=== PATIENT | male | born 1980 | race Caucasian/White ===

== ENCOUNTER 2021-12-14 14:20 | Day surgery (SDC) | payer BC, OTHER ==
[2021-12-14] MEDS ORDERED: SODIUM CHLORIDE 1,000 ML IV STA ×2 (16:19→16:38)
[2021-12-14] MEDS ORDERED: PROMETHAZINE HCL 25 MG/1 ML VIAL IVPUSH PRN (16:21)
[2021-12-14] MEDS ORDERED: oxyCODONE HCL 5 MG TABLET PO PRN (16:21)
[2021-12-14] MEDS ORDERED: ONDANSETRON 4 MG/2 ML VIAL IVPUSH PRN (16:21)
[2021-12-14] MEDS ORDERED: LACTATED RINGERS SOLUTION 1,000 ML IV SCH (16:30)
[2021-12-14] MEDS ORDERED: CEFTRIAXONE 1,000 MG in DEXTROSE 5%-WATER - 50 ML IVPB ONE (16:39)
[2021-12-14] MEDS ORDERED: CEFTRIAXONE 1 GM/50 ML BAG ONE (17:09)
[2021-12-14] MEDS ORDERED: PROPOFOL 20 ML ONE ×2 (17:59→19:00)
[2021-12-14] MEDS ORDERED: DEXAMETHASONE SOD PHOSPHATE 4 MG/1 ML VIAL ONE (17:59)
[2021-12-14] MEDS ORDERED: MIDAZOLAM HCL 2 MG/2 ML SINGLE DOSE VIAL ONE (17:59)
[2021-12-14] MEDS ORDERED: LIDOCAINE HCL 2% 100 MG/5 ML DISP.SYRIN ONE (17:59)
[2021-12-14] MEDS ORDERED: GLYCOPYRROLATE 0.2 MG/1 ML VIAL ONE (17:59)
[2021-12-14] MEDS ORDERED: KETOROLAC TROMETHAMINE 30 MG/1 ML VIAL ONE (18:01)
[2021-12-14] MEDS ORDERED: IOHEXOL 300 MG/ML INFUS..BTL IV ONE (19:00)
[2021-12-14 20:45] VITALS: BP 128/79; PULSE 98; RESP 18; TEMP 98.3; BMI 27.1
== END 2021-12-14 22:18 | disposition home or self-care (01) ==
LOC: JER 14:20 → JASUSAT 19:18 → J6S 20:23 → JASUSAT 22:13
PROVIDERS: ATTEND Urology
PROC: 0T9780Z Drainage of Left Ureter with Drainage Device, Via Natural or Artificial Opening Endoscopic (ICD-10-PCS; principal; 2021-12-14 17:30)
PROC: 0T778DZ Dilation of Left Ureter with Intraluminal Device, Via Natural or Artificial Opening Endoscopic (ICD-10-PCS; 2021-12-14 17:30)
DX: N13.2 Hydronephrosis with renal and ureteral calculous obstruction (principal)
CPT/HCPCS: 76000-TC-FY; 94760; 99285-25; C2617

== ENCOUNTER 2021-12-25 05:17 | Day surgery (SDC) | payer BC, OTHER ==
[2021-12-20 16:28] VITALS: BMI 29.7
[2021-12-25 07:22] VITALS: RESP 18
[2021-12-25] MEDS ORDERED: MIDAZOLAM HCL 2 MG/2 ML SINGLE DOSE VIAL ONE (08:38)
[2021-12-25] MEDS ORDERED: PROPOFOL 20 ML ONE (08:51)
[2021-12-25] MEDS ORDERED: KETOROLAC TROMETHAMINE 30 MG/1 ML VIAL ONE (08:51)
[2021-12-25 10:31] VITALS: BP 128/79; PULSE 80; TEMP 97.3
== END 2021-12-25 10:40 | disposition home or self-care (01) ==
LOC: JASU-SURG 05:17
PROVIDERS: ATTEND Urology
PROC: 0TF4XZZ Fragmentation in Left Kidney Pelvis, External Approach (ICD-10-PCS; principal; 2021-12-25 08:30)
DX: N20.0 Calculus of kidney (principal)

== ENCOUNTER 2022-01-22 03:59 | Day surgery (SDC) | payer BC, OTHER ==
[2022-01-19 12:24] VITALS: BMI 29.7
[2022-01-22] MEDS ORDERED: LACTATED RINGERS SOLUTION 1,000 ML IV SCH (07:15)
[2022-01-22 07:21] VITALS: RESP 18
[2022-01-22] MEDS ORDERED: PROPOFOL 20 ML ONE (09:02)
[2022-01-22] MEDS ORDERED: MIDAZOLAM HCL 2 MG/2 ML SINGLE DOSE VIAL ONE (09:02)
[2022-01-22] MEDS ORDERED: ONDANSETRON 4 MG/2 ML VIAL ONE (09:03)
[2022-01-22 10:30] VITALS: TEMP 97.8
[2022-01-22 11:02] VITALS: BP 130/90; PULSE 73
== END 2022-01-22 11:05 | disposition home or self-care (01) ==
LOC: JASU-SURG 03:59
PROVIDERS: ATTEND Urology
PROC: 0TF4XZZ Fragmentation in Left Kidney Pelvis, External Approach (ICD-10-PCS; principal; 2022-01-22 09:00)
DX: N20.0 Calculus of kidney (principal)

== ENCOUNTER 2022-03-05 04:47 | Day surgery (SDC) | payer BC, OTHER ==
[2022-02-27 17:20] VITALS: BMI 29.7
[2022-03-05 11:39] VITALS: RESP 18
[2022-03-05] MEDS ORDERED: FENTANYL CITRATE/PF 50 MCG/ML VIAL ONE ×6 (14:25→16:42)
[2022-03-05] MEDS ORDERED: MIDAZOLAM HCL 2 MG/2 ML SINGLE DOSE VIAL ONE (14:26)
[2022-03-05] MEDS ORDERED: PROPOFOL 20 ML ONE (14:26)
[2022-03-05] MEDS ORDERED: ceFAZolin SODIUM 1 GM VIAL IVPB ONE (14:55)
[2022-03-05] MEDS ORDERED: GENTAMICIN 80MG PREMIX BAG IVPB ONE (15:05)
[2022-03-05] MEDS ORDERED: GENTAMICIN SO4 80 MG/2 ML VIAL IVPB ONE (15:05)
[2022-03-05] MEDS ORDERED: PROMETHAZINE HCL 25 MG/1 ML VIAL IVPUSH PRN (16:37)
[2022-03-05] MEDS ORDERED: ONDANSETRON 4 MG/2 ML VIAL IVPUSH PRN (16:37)
[2022-03-05] MEDS ORDERED: oxyCODONE HCL 5 MG TABLET PO PRN ×2 (16:37)
[2022-03-05] MEDS ORDERED: LACTATED RINGERS SOLUTION 1,000 ML IV SCH (16:45)
[2022-03-05 17:18] VITALS: PULSE 80
[2022-03-05] MEDS ORDERED: ACETAMINOPHEN 325 MG TABLET (FP) ONE (17:56)
[2022-03-05 18:26] VITALS: TEMP 98.2
[2022-03-05 18:34] VITALS: BP 140/90
== END 2022-03-05 18:37 | disposition home or self-care (01) ==
LOC: JASU-SURG 04:47
PROVIDERS: ATTEND Urology
PROC: 0TC48ZZ Extirpation of Matter from Left Kidney Pelvis, Via Natural or Artificial Opening Endoscopic (ICD-10-PCS; principal; 2022-03-05 13:00)
PROC: 0T778DZ Dilation of Left Ureter with Intraluminal Device, Via Natural or Artificial Opening Endoscopic (ICD-10-PCS; 2022-03-05 13:00)
PROC: BT1FYZZ Fluoroscopy of Left Kidney, Ureter and Bladder using Other Contrast (ICD-10-PCS; 2022-03-05 13:00)
DX: N20.0 Calculus of kidney (principal)
CPT/HCPCS: 76000-TC-FY; 94760; C1758; C2617

== ENCOUNTER 2022-03-09 22:07 | Inpatient (IN) | payer BC, OTHER ==
[2022-03-09 22:20] VITALS: BMI 30.5
[2022-03-09] MEDS ORDERED: ACETAMINOPHEN 1000 MG/100 ML BAG IVPB ONE (23:06)
[2022-03-09] MEDS ORDERED: LACTATED RINGERS SOLUTION 1000 ML INFUS.BAG IV ONE (23:06)
[2022-03-10 00:05] LABS: BASO % 0.5 % (0-2.0); HEMATOCRIT 48.1 % (35.4-49); HEMOGLOBIN 16.1 GM/dL (11.7-16.9); LYMPH % 9.7 % (8-40); MCH 30.6 pg (25.7-33.7); MCHC 33.5 g/dl (32.0-35.9); MEAN CELL VOLUME 91.3 fl (80-96); MEAN PLT VOLUME 8.6 fl (7.5-11.1); MONO % 6.4 % (3.8-10.2); NEUT % 82.4 % (42.8-82.8); PLATELET COUNT 281 10^3/uL (134-434); RBC 5.27 M/mm3 (4.00-5.60); RDW 13.1 % (11.9-15.9); WHITE BLOOD COUNT 11.3 K/mm3 (4.0-10.0)
[2022-03-10] MEDS ORDERED: ACETAMINOPHEN INJECTION 100 ML IVPB ONE ×3 (00:20→12:20)
[2022-03-10 00:52] LABS: INR 1.08 (0.83-1.09); PROTHROMBIN TIME (PATIENT) 12.4 SEC (9.7-13.0)
[2022-03-10 00:54] LABS: ACTIVATED PTT 31.1 SECONDS (25.2-36.5)
[2022-03-10 01:05] LABS: BLOOD UREA NITROGEN 12.3 mg/dL (7-18); CALCIUM 9.1 mg/dL (8.5-10.1)
[2022-03-10 01:06] LABS: ALBUMIN 3.9 g/dl (3.4-5.0)
[2022-03-10 01:09] LABS: CREATININE 1.3 mg/dL (0.55-1.3)
[2022-03-10 01:10] LABS: BILIRUBIN,TOTAL 0.6 mg/dL (0.2-1); TOT PROT 7.4 g/dl (6.4-8.2)
[2022-03-10 01:17] LABS: EPI CELLS 12 /uL (0-25.1); HYALINE CASTS 1 /uL (0-3.1); PH,URINE 5.5 (5.0-8.0); URINE APPEARANCE CLOUDY; URINE BACTERIA 45 /uL (0-1359); URINE BILIRUBIN NEGATIVE (NEGATIVE); URINE COLOR YELLOW; URINE GLUCOSE (UA) NEGATIVE (NEGATIVE); URINE KETONE NEGATIVE (NEGATIVE); URINE LEUK ESTERASE 2+ (NEGATIVE); URINE NITRITE NEGATIVE (NEGATIVE); URINE PROTEIN 1+ (NEGATIVE); URINE RBC 2479 /uL (0-23.9); URINE UROBILINOGEN 0.2 mg/dL (0.2-1.0); URINE WBC 457 /uL (0-25.8)
[2022-03-10] MEDS ORDERED: PIPERACILLIN/TAZOB 4.5 GM 4.5 GM in DEXTROSE 5%-WATER 100 ML IVPB ONE (01:23)
[2022-03-10] MEDS ORDERED: PIPERACILLIN/TAZOB 4.5 GM 4.5 GM/100 ML BAG IVPB ONE ×2 (02:17→09:21)
[2022-03-10] MEDS: DEXTROSE 5%-0.45% SALINE 1,000 ML IV SCH (04:00)
[2022-03-10] MEDS: ACETAMINOPHEN 1000 MG/100 ML BAG IVPB PRN ×3 (07:11→21:43)
[2022-03-10] MEDS ORDERED: KETOROLAC TROMETHAMINE 30 MG/1 ML VIAL IVPB PRN (07:28)
[2022-03-10 08:22] LABS: BASO % 0.4 % (0-2.0); EOS % 0.2 % (0-4.5); HEMATOCRIT 43.7 % (35.4-49); LYMPH % 6.9 % (8-40); MCH 31.1 pg (25.7-33.7); MCHC 34.3 g/dl (32.0-35.9); MEAN CELL VOLUME 90.5 fl (80-96); MEAN PLT VOLUME 8.1 fl (7.5-11.1); MONO % 7.7 % (3.8-10.2); NEUT % 84.8 % (42.8-82.8); PLATELET COUNT 250 10^3/uL (134-434); RBC 4.83 M/mm3 (4.00-5.60); RDW 13.3 % (11.9-15.9); WHITE BLOOD COUNT 9.6 K/mm3 (4.0-10.0)
[2022-03-10 08:47] LABS: CALCIUM 8.7 mg/dL (8.5-10.1)
[2022-03-10 08:48] LABS: ALBUMIN 3.6 g/dl (3.4-5.0); BLOOD UREA NITROGEN 11.2 mg/dL (7-18)
[2022-03-10 08:51] LABS: CREATININE 1.3 mg/dL (0.55-1.3)
[2022-03-10 08:53] LABS: TOT PROT 6.8 g/dl (6.4-8.2)
[2022-03-10] MEDS ORDERED: PIPERACILLIN/TAZOB 4.5 GM 4.5 GM in DEXTROSE 5%-WATER 100 ML IVPB SCH (09:00)
[2022-03-10] MEDS: PIPERACILLIN/TAZOB 4.5 GM 4.5 GM in DEXTROSE 5%-WATER 100 ML IVPB SCH ×3 (09:50→22:21)
[2022-03-10] MEDS ORDERED: SODIUM CHLORIDE 500 ML IV STA (20:03)
[2022-03-11] MEDS: PIPERACILLIN/TAZOB 4.5 GM 4.5 GM in DEXTROSE 5%-WATER 100 ML IVPB SCH (02:56)
[2022-03-11] MEDS: ACETAMINOPHEN 1000 MG/100 ML BAG IVPB PRN (03:48)
[2022-03-11] MEDS: DEXTROSE 5%-0.45% SALINE 1,000 ML IV SCH ×2 (03:50→10:29)
[2022-03-11] MEDS ORDERED: PIPERACILLIN/TAZOB 4.5 GM 4.5 GM in DEXTROSE 5%-WATER 100 ML IVPB SCH ×3 (07:17→09:00)
[2022-03-11] MEDS ORDERED: ERTAPENEM SODIUM 1 GM in SODIUM CHLORIDE 50 ML IVPB SCH (12:00)
[2022-03-11] MEDS: VANCOMYCIN/WATER FOR INJ (PEG) 1,000 MG/200 ML BAG IVPB SCH (12:41)
[2022-03-11] MEDS: ACETAMINOPHEN 325 MG TABLET (FP) PO PRN (16:53)
[2022-03-11] MEDS: PIPERACILLIN/TAZOB 3.375 GM 3.375 GM in DEXTROSE 5%-WATER - 50 ML IVPB SCH (17:47)
[2022-03-12] MEDS: VANCOMYCIN/WATER FOR INJ (PEG) 1,000 MG/200 ML BAG IVPB SCH ×2 (00:56→12:25)
[2022-03-12 01:51] VITALS: RESP 20
[2022-03-12] MEDS: ACETAMINOPHEN 325 MG TABLET (FP) PO PRN (02:11)
[2022-03-12] MEDS: PIPERACILLIN/TAZOB 3.375 GM 3.375 GM in DEXTROSE 5%-WATER - 50 ML IVPB SCH ×3 (02:52→18:13)
[2022-03-12] MEDS: DEXTROSE 5%-0.45% SALINE 1,000 ML IV SCH ×2 (04:00→22:39)
[2022-03-13] MEDS: PIPERACILLIN/TAZOB 3.375 GM 3.375 GM in DEXTROSE 5%-WATER - 50 ML IVPB SCH ×2 (02:12→09:06)
[2022-03-13] MEDS: DEXTROSE 5%-0.45% SALINE 1,000 ML IV SCH (09:07)
[2022-03-13 09:23] VITALS: BP 122/84; PULSE 88; TEMP 98.6
[2022-03-13 10:35] LABS: HEMOGLOBIN 13.6 GM/dL (11.7-16.9); MCH 31.5 pg (25.7-33.7); MCHC 34.8 g/dl (32.0-35.9); MEAN CELL VOLUME 90.4 fl (80-96); MEAN PLT VOLUME 8.2 fl (7.5-11.1); PLATELET COUNT 206 10^3/uL (134-434); RBC 4.31 M/mm3 (4.00-5.60); RDW 13.1 % (11.9-15.9); WHITE BLOOD COUNT 5.3 K/mm3 (4.0-10.0)
[2022-03-13 11:09] LABS: ALBUMIN 3.1 g/dl (3.4-5.0); BLOOD UREA NITROGEN 14.6 mg/dL (7-18)
[2022-03-13 11:11] LABS: BILIRUBIN,TOTAL 1.2 mg/dL (0.2-1); TOT PROT 6.4 g/dl (6.4-8.2)
[2022-03-13 11:12] LABS: CALCIUM 8.9 mg/dL (8.5-10.1); CREATININE 1.2 mg/dL (0.55-1.3)
[2022-03-13] MEDS: VANCOMYCIN/WATER FOR INJ (PEG) 1,000 MG/200 ML BAG IVPB SCH ×2 (12:21)
== END 2022-03-13 14:58 | disposition home or self-care (01) | DRG 690 ==
LOC: JER 22:07 → JERBED 03-10 03:00 → J8W 03-10 12:51
PROVIDERS: ADMIT Urology; ATTEND Family Medicine
DX: N10 Acute pyelonephritis (principal); N13.30 Unspecified hydronephrosis
CPT/HCPCS: 0241U-QW; 36415; 74176-TC; 80053; 81003; 83605; 85025; 85027; 85610; 85730; 86900; 87040; 87086; 87186; 93005; 93010; 99285-25